=== PATIENT | female | born 1985 | race Caucasian/White ===

== ENCOUNTER → 2017-02-09 | Outpatient (CLI) | payer BC ==
[2017-02-09 11:34] LABS: Basophils % (A) 1 %; CH 32.1; Eosinophils % (A) 1 %; HCT 41.3 % (34.0-46.0); HGB 14.4 gm/dL (11.4-16.0); Luc # (Auto) 0.07; Luc % (Auto) 2; Lymphocytes # (A) 1.5 k/uL (1.0-4.8); Lymphocytes % (A) 32 %; MCH 31.4 pg (25.0-35.0); MCV 89.6 fL (80.0-100.0); Mean Platelet Volume 7.1; Monocytes # (A) 0.3 k/uL (0-1.0); Monocytes % (A) 6 %; Neutrophils # (A) 2.7 k/uL (1.3-7.7); Neutrophils % (A) 59 %; RDW 13.3 % (11.5-15.5); WBC 4.7 k/uL (3.8-10.6); WBC (Perox) 5.01
== END | disposition home or self-care (01) ==
LOC: LABPAT 10:51
PROVIDERS: ATTEND Obstetrics & Gynecology
DX: Z01.812 Encounter for preprocedural laboratory examination (principal)
CPT/HCPCS: 85025

== ENCOUNTER 2017-02-22 05:49 | Day surgery (SDC) | payer BC ==
[2017-02-18 13:17] VITALS: BMI 24.3
--- NOTE | 2017-02-19 12:15 | P.HPOB ---
History of Present Illness H&P Date: 02/19/17 Chief Complaint: High grade cervical dysplasia. This patient is a pleasant 31 yr female who presents for colposcopy with LEEP excision of endo/ecto cervix due to HGSIL. She has a history of mild dysplasia in the past and had cryo at that time. She had not had a pap in a while and it demonstrated HGSIL. Colpo on 02/02 showed ectocervical HGSIL (STAS II ). Endocervix was negative. Review of Systems Constitutional: Denies chills, Denies fever Ears, nose, mouth and throat: Denies headache, Denies sore throat Cardiovascular: Denies chest pain, Denies shortness of breath Respiratory: Denies cough Gastrointestinal: Denies abdominal pain, Denies diarrhea, Denies nausea, Denies vomiting Genitourinary: Reports as per HPI Past Medical History Past Medical History: Asthma, Osteoarthritis (OA) History of Any Multi-Drug Resistant Organisms: None Reported Past Surgical History: Section, Tubal Ligation Additional Past Surgical History / Comment(s): C SECTION X2 Past Anesthesia/Blood Transfusion Reactions: No Reported Reaction Past Psychological History: Anxiety, Bipolar, Depression Additional Psychological History / Comment(s): IN 2011 Smoking Status: Never smoker Past Alcohol Use History: Occasional Past Drug Use History: Marijuana Additional Drug Use History / Comment(s): MARIJUANA -HAS MEDICAL CARD USES RARELY - Past Family History Mother Family Medical History: No Reported History Medications and Allergies Home Medications Medication Instructions Recorded Confirmed Type Acyclovir [Zovirax] 800 mg PO DAILY PRN 06/20/14 02/18/17 History Albuterol Inhaler [Ventolin 2 puff INHALATION Q4HR PRN 06/20/14 02/18/17 History Inhaler] Budesonide/Formoterol Fumarate 2 puff INHALATION BID 02/18/17 02/18/17 History [Symbicort 160-4.5 Mcg Inhaler] Diclofenac Sodium [Voltaren] 75 mg PO HS 02/18/17 02/18/17 History Dicyclomine [Bentyl] 10 mg PO TID PRN 02/18/17 02/18/17 History HYDROcodone/APAP 10-325MG [[place] 1 tab PO BID 02/18/17 02/18/17 History 10-325] Methocarbamol [Robaxin] 750 mg PO TID PRN 02/18/17 02/18/17 History QUEtiapine [SEROquel] 50 mg PO HS 02/18/17 02/18/17 History clonazePAM [KlonoPIN] 1 mg PO DAILY PRN 02/18/17 02/18/17 History Allergies Allergy/AdvReac Type Severity Reaction Status Date / Time adhesive tape Allergy Rash/Hives Verified 02/18/17 12:44 latex Allergy Rash/Hives, Verified 02/18/17 12:44 BURNING SKIN Exam - OBG Physical Exam Abdomen: bowel sounds normal, no diffuse tenderness, no bruit present, no guarding noted, no hepatomegaly, no splenomegaly, no mass Vulva: both: normal Vagina: normal moisture, no discharge Cervix: no lesion, no discharge Uterus: normal size, normal contour Adnexa: both: normal Results Cervical biopsy on 02/02/2017 demonstrated STAS II (HGSIL) at 6 and 12 oclock. Assessment and Plan (1) High grade squamous intraepithelial cervical dysplasia Narrative/Plan: This is a pleasant 31 yr old female with STAS II (HGSIL) of the ectocervix who is presenting for colposcopy with LEEP excision of the ecto and endo cervix. I have discussed this surgery in detail with Janice and the risks: infection, bleeding, and possible positive margins. All of the patients questions were answered and a written consent obtained. Status: Acute
[~2017-02-22 05:49] MED LIST: DEXAMETHASONE SOD PHOSPHATE 10 MG/ML 1 ML VIAL IV ONE; LACTATED RINGERS 1,000 ML IV SCH; MIDAZOLAM 2 MG/2 ML VIAL IV PRN; ONDANSETRON 4 MG/2 ML VIAL IVP ONE; Pre Op ABX Message 1 EACH MISC MISCELLANE ONE; SCOPOLAMINE 1.5MG/72HR PATCH TRANSDERM ONE
[2017-02-22] MEDS ORDERED: PROPOFOL 10 MG/ML 20 ML VIAL IV ONE (06:52)
[2017-02-22] MEDS ORDERED: fentaNYL (PF) 50 MCG/ML 2 ML AMP ONE (06:52)
[2017-02-22] MEDS ORDERED: LIDOCAINE 1% INJ 10MG/ML (20 ML MDV) ONE (06:52)
[2017-02-22] MEDS ORDERED: MIDAZOLAM 2 MG/2 ML VIAL ONE (06:52)
[2017-02-22] MEDS ORDERED: FERRIC SUBSULFATE (MONSELS) JAR TOPICAL ONE ×2 (07:11)
[2017-02-22] MEDS ORDERED: IODINE/POTASS IOD (LUGOLS) BTL TOPICAL ONE (07:11)
--- NOTE | 2017-02-22 07:34 | P.OP ---
Date of Procedure: 02/22/17 Preoperative Diagnosis: High-grade cervical dysplasia Postoperative Diagnosis: Same Procedure(s) Performed: #1: Positive pain. #2: LEEP excision of the ectocervix and endocervix. Anesthesia: MAC Surgeon: Bill Perez Estimated Blood Loss (ml): 75 Urine output (ml): 50 Pathology: other (Ecto and endocervix) Condition: stable Disposition: PACU Indications for Procedure: Please see dictated H&P for intimate details of this patient's admission. Brief summary this is a pleasant 31-year-old female with known severe cervical dysplasia (STAS-2) who presents for LEEP excision of the ectocervix and endocervix. Patient understands this procedure and risks including risks of infection, bleeding, possible positive margins. All the patient's questions are answered and a written consent is obtained. Operative Findings: This patient had a large area of the ectocervix that was non-Lugol staining by colposcopy. Description of Procedure: This patient is taken to the operating room where she is laid in the supine position. She subsequent undergoes general mask anesthesia without incident. With adequate level of anesthesia she's placed in dorsal lithotomy position. She has a vaginal perineal prep and drape. Laser speculum was then placed in the vagina the bladder is drained for 50 mL of clear urine. A posterior spur performed in the area of the ectocervix that is abnormal is demarcated. Using large LEEP loop on a 60/70 cutting cautery setting one pass is made of the ectocervix and the entire transformation zone was removed. A second pass is made with the small LEEP loop and the endocervix is excised. There is brisk bleeding from the posterior lip of the cervix. This is cauterized. An for added hemostasis I placed 2 [id number] 0 Vicryl sutures. Excellent hemostasis is noted at this time. Cauterize the ectocervical and endocervical pads. Monsels solution is applied for added hemostasis. Prolonged observation and no further bleeding is noted procedure is ended. Patient is awakened from anesthesia and taken recovery room satisfactory condition. All counts are correct 3. There are no complications.
[2017-02-22 07:37] VITALS: TEMP 97.1
[2017-02-22 07:48] VITALS: RESP 16
[2017-02-22] MEDS: HYDROmorphone 1 MG/ML 1 ML SYRINGE IVP PRN ×2 (07:50→08:00)
[2017-02-22] MEDS ORDERED: LACTATED RINGERS 1,000 ML IV ONE (08:06)
[2017-02-22] MEDS ORDERED: HYDROcodone/APAP 5-325MG 1 EACH TAB PO STA (08:37)
[2017-02-22 09:09] VITALS: BP 108/67; PULSE 63
== END 2017-02-22 09:50 | disposition home or self-care (01) ==
LOC: OR 05:49
PROVIDERS: ATTEND Obstetrics & Gynecology
DX: D06.7 Carcinoma in situ of other parts of cervix (principal); J45.909 Unspecified asthma, uncomplicated; F41.9 Anxiety disorder, unspecified; F31.9 Bipolar disorder, unspecified; Z79.891 Long term (current) use of opiate analgesic; Z79.51 Long term (current) use of inhaled steroids; Z79.899 Other long term (current) drug therapy; Z91.040 Latex allergy status; Z91.048 Other nonmedicinal substance allergy status
CPT/HCPCS: 88307; 57460; J2250; J1100; J2405; J2001; J3010; J1170; J2704; 88305

== ENCOUNTER → 2018-11-04 | Outpatient (CLI) | payer BC ==
--- NOTE | 2018-11-08 08:33 | USB ---
History: Family history of breast cancer in maternal grandmother and breast cancer in maternal aunt. US Breast RT Right complete breast ultrasound includes all four quadrants, the retroareolar region and axilla. Finding demonstrates No cystic or solid lesion seen. ASSESSMENT: Incomplete: need additional imaging evaluation, BI-RAD 0 RECOMMENDATION: Follow-up diagnostic mammogram of the right breast.
--- NOTE | 2018-11-08 08:39 | MM ---
Reason for exam: clinical finding. Baseline mammogram. History: Family history of breast cancer in maternal grandmother and breast cancer in maternal aunt. Indicated problem(s): palpable abnormality in the right breast. Physical Findings: Nurse did not find any significant physical abnormalities on exam. MG 3D Diag Mammo W/Cad RT CC and MLO view(s) were taken of the right breast. No prior studies available for comparison. The breast tissue is extremely dense which could obscure a lesion on mammography. No discrete abnormality. These results were verbally communicated with the patient and result sheet given to the patient on 11/04/18. ASSESSMENT: Benign, BI-RAD 2 RECOMMENDATION: Clinical management. Routine screening mammogram of both breasts at age 34.
== END | disposition home or self-care (01) ==
LOC: RADUSWWP 09:28
PROVIDERS: ATTEND Obstetrics & Gynecology
DX: N64.4 Mastodynia (principal); N63.10 Unspecified lump in the right breast, unspecified quadrant
CPT/HCPCS: 77061; 77065

== ENCOUNTER 2018-12-04 19:34 | Emergency (ER) | payer BC ==
[2018-12-04 19:49] VITALS: BP 138/84; PULSE 96; RESP 18; TEMP 98.4
[2018-12-04] MEDS ORDERED: ACET/COD 300 MG/30 MG STARTER PACK 6 TAB BTL PO STA (20:13)
--- NOTE | 2018-12-04 20:42 | XR ---
right tibia and fibula. 4 views History pain. Trauma. Comparison none. FINDINGS: I see no fracture nor dislocation. Tibia and fibula appear intact. There are no pathologic calcificat ions. IMPRESSION: Normal right tibia and fibula exam.
--- NOTE | 2018-12-04 20:43 | XR ---
Right ankle 3 views. History pain. Comparison none. FINDINGS: There is no fracture nor dislocation. Joint spaces are normal. There are no pathologic calcifications . IMPRESSION: Normal right ankle.
--- NOTE | 2018-12-04 20:44 | XR ---
Right foot 3 views. History pain. Comparison none. FINDINGS: Metatarsals are intact. I see no fracture nor dislocation. Joint spaces are normal. Impression Negative right foot exam.
--- NOTE | 2018-12-04 20:45 | ED ---
Lower Extremity Injury HPI - General Chief Complaint: Extremity Injury, Lower Stated Complaint: rt ankle injury Time Seen by Provider: 12/04/18 19:52 Source: patient, RN notes reviewed, old records reviewed Mode of arrival: wheelchair Limitations: no limitations - History of Present Illness Initial Comments: 33-year-old female presents returns here with right ankle pain and injury. She reports that she was on a climbing wall at a local gymnasium. Patient reports that she fell and twisted her right ankle at the time. She reports symptoms happened at 2:00. She went home ice it. She states the pain seemed to be progressively worse over the past few hours. She went to the grocery store and got splints to put on at home. Patient states that the pain was unbearable and she was unable to bear weight. Patient denies any other complaints. - Related Data Home Medications Medication Instructions Recorded Confirmed Acyclovir [Zovirax] 800 mg PO DAILY PRN 06/20/14 02/22/17 Albuterol Inhaler [Ventolin 2 puff INHALATION Q4HR PRN 06/20/14 02/22/17 Inhaler] Budesonide/Formoterol Fumarate 2 puff INHALATION BID 02/18/17 02/22/17 [Symbicort 160-4.5 Mcg Inhaler] Diclofenac Sodium [Voltaren] 75 mg PO HS 02/18/17 02/22/17 Dicyclomine [Bentyl] 10 mg PO TID PRN 02/18/17 02/22/17 HYDROcodone/APAP 10-325MG [[place] 1 tab PO BID 02/18/17 02/22/17 10-325] Methocarbamol [Robaxin] 750 mg PO TID PRN 02/18/17 02/22/17 QUEtiapine [SEROquel] 50 mg PO HS 02/18/17 02/22/17 clonazePAM [KlonoPIN] 1 mg PO DAILY PRN 02/18/17 02/22/17 Previous Rx's Medication Instructions Recorded Acetaminophen-Codeine 300-30mg 1 - 2 tab PO Q4H PRN #30 tablet 02/22/17 [Tylenol #3] Ibuprofen [Motrin] 600 mg PO Q6HR PRN #40 tab 02/22/17 Ibuprofen [Motrin] 400 mg PO Q4H #20 tab 12/04/18 Allergies Allergy/AdvReac Type Severity Reaction Status Date / Time adhesive tape Allergy Rash/Hives Verified 12/04/18 19:49 latex Allergy Rash/Hives, Verified 12/04/18 19:49 BURNING SKIN Review of Systems ROS Statement: Those systems with pertinent positive or pertinent negative responses have been documented in the HPI. ROS Other: All systems not noted in ROS Statement are negative. Past Medical History Past Medical History: Asthma History of Any Multi-Drug Resistant Organisms: None Reported Past Surgical History: Section Past Anesthesia/Blood Transfusion Reactions: No Reported Reaction Past Psychological History: Anxiety, Bipolar, Depression Past Alcohol Use History: None Reported, Abuse Past Drug Use History: None Reported General Exam - General Exam Comments Initial Comments: Well-appearing 33-year-old female. No distress. Limitations: no limitations General appearance: alert, in no apparent distress Head exam: Present: atraumatic, normocephalic, normal inspection Eye exam: Present: normal appearance, PERRL, EOMI. Absent: scleral icterus, conjunctival injection, periorbital swelling ENT exam: Present: normal exam, mucous membranes moist Neck exam: Present: normal inspection. Absent: tenderness, meningismus, lymphadenopathy Respiratory exam: Present: normal lung sounds bilaterally. Absent: respiratory distress, wheezes, rales, rhonchi, stridor Cardiovascular Exam: Present: regular rate, normal rhythm, normal heart sounds. Absent: systolic murmur, diastolic murmur, rubs, gallop, clicks GI/Abdominal exam: Present: soft, normal bowel sounds. Absent: distended, tenderness, guarding, rebound, rigid Extremities exam: Present: normal inspection, full ROM, normal capillary refill. Absent: tenderness, pedal edema, joint swelling, calf tenderness Right Lower Leg exam: Present: normal inspection, full ROM Ankle exam: Present: full ROM, tenderness, swelling (over bilateral malleolus). Absent: normal inspection Foot/Toe exam: Present: normal inspection, full ROM Neurovascular tendon exam: Present: no vascular compromise Gait: observed and normal Back exam: Present: normal inspection Neurological exam: Present: alert, oriented X3, CN II-XII intact Psychiatric exam: Present: normal affect, normal mood Skin exam: Present: warm, dry, intact, normal color. Absent: rash Course Vital Signs 12/04/18 19:45 Temperature 98.4 F Pulse Rate 96 Respiratory 18 Rate Blood Pressure 138/84 O2 Sat by Pulse 100 Oximetry Procedures - Orthopedic Splinting/Casting Injury #1 Side: right Upper Extremity Immobilizer: Zac wrap Lower Extremity Injury Location: ankle Medical Decision Making - Medical Decision Making Patient is a 33-year-old female presents to return today with right ankle and foot pain after twisting while at a gymnasium. Patient has some tenderness and swelling over the medial lower lateral malleolus. She has normal pulses normal sensation distally. X-ray of the tib-fib ankle and foot are negative for any acute process. Patient is placed in Zac wrap and ankle stirrup splint. Discussed following up with orthopedic if symptoms persist. Prescription for crutches. - Radiology Data Radiology results: report reviewed Normal right tibia and fibula exam. Negative right foot exam. Normal right ankle. Disposition Clinical Impression: Right ankle sprain Disposition: HOME SELF-CARE Condition: Good Instructions (If sedation given, give patient instructions): Ankle Sprain (ED) Additional Instructions: Rest rest, ice, and elevate the foot and ankle. Ambulate with crutches. Follow -up with orthopedic symptoms persist. Return to emergency department if any alarming signs or symptoms occur. Prescriptions: Ibuprofen [Motrin] 400 mg PO Q4H #20 tab Is patient prescribed a controlled substance at d/c from ED?: No Referrals: Yosvany De La Cruz MD [Primary Care Provider] - 1-2 days Nikolay Molina DO [Doctor of Osteopathic Medicine] - 1-2 days Time of Disposition: 20:56
== END 2018-12-04 21:11 | disposition home or self-care (01) ==
LOC: EC 19:34
DX: S93.401A Sprain of unspecified ligament of right ankle, initial encounter (principal); J45.909 Unspecified asthma, uncomplicated; F31.9 Bipolar disorder, unspecified; Z79.51 Long term (current) use of inhaled steroids; Z79.1 Long term (current) use of non-steroidal anti-inflammatories (NSAID); Z79.891 Long term (current) use of opiate analgesic; Z79.899 Other long term (current) drug therapy; Z91.048 Other nonmedicinal substance allergy status; Z91.040 Latex allergy status; W19.XXXA Unspecified fall, initial encounter; X50.1XXA Overexertion from prolonged static or awkward postures, initial encounter; Y93.31 Activity, mountain climbing, rock climbing and wall climbing; Y92.39 Other specified sports and athletic area as the place of occurrence of the external cause
CPT/HCPCS: 29515; 99284

== ENCOUNTER 2020-01-11 12:29 | Emergency (ER) | payer BC ==
[2020-01-11] MEDS ORDERED: KETOROLAC 30 MG/ML 1 ML VIAL IVP STA (12:52)
[2020-01-11] MEDS ORDERED: PANTOPRAZOLE 40 MG/10 ML VIAL IVP STA (12:52)
[2020-01-11] MEDS ORDERED: SODIUM CHLORIDE 0.9% 1,000 ML IV STA (12:52)
--- NOTE | 2020-01-11 12:56 | ED ---
Abdominal Pain HPI - General Chief Complaint: Abdominal Pain Stated Complaint: abd pain Time Seen by Provider: 01/11/20 12:33 Source: patient Mode of arrival: ambulatory Limitations: no limitations - History of Present Illness Initial Comments: Patient is a 34-year-old female presenting to emergency Department with complaints of abdominal pain 2 days. Patient states she went to her PCPs office today and they sent her to the ER for a possible computed tomography scan. Patient states she does have history of IBS and initially thought her pains were gas related or constipation. Patient states she did have a bowel movement yesterday which was very hard, small amount. Patient states her pain has been steadily increasing over the past 2-3 days. She states now it hurts to take in a deep breath or stand up straight. She does admit to history of 2 C- sections and tubal ligation. No other abdominal surgeries. She does admit to nausea, no vomiting, no diarrhea. She denies being secondary to tubal ligation. She denies fever, chills, chest pain, shortness of breath. She has no other complaints at this time. Upon arrival to ER, patient slightly tachycardia at 104, rest of vitals are normal. - Related Data Home Medications Medication Instructions Recorded Confirmed Acyclovir [Zovirax] 800 mg PO DAILY PRN 06/20/14 02/22/17 Albuterol Inhaler [Ventolin 2 puff INHALATION Q4HR PRN 06/20/14 02/22/17 Inhaler] Budesonide/Formoterol Fumarate 2 puff INHALATION BID 02/18/17 02/22/17 [Symbicort 160-4.5 Mcg Inhaler] Diclofenac Sodium [Voltaren] 75 mg PO HS 02/18/17 02/22/17 Dicyclomine [Bentyl] 10 mg PO TID PRN 02/18/17 02/22/17 HYDROcodone/APAP 10-325MG [[place] 1 tab PO BID 02/18/17 02/22/17 10-325] Methocarbamol [Robaxin] 750 mg PO TID PRN 02/18/17 02/22/17 QUEtiapine [SEROquel] 50 mg PO HS 02/18/17 02/22/17 clonazePAM [KlonoPIN] 1 mg PO DAILY PRN 02/18/17 02/22/17 Previous Rx's Medication Instructions Recorded Acetaminophen-Codeine 300-30mg 1 - 2 tab PO Q4H PRN #30 tablet 02/22/17 [Tylenol #3] Ibuprofen [Motrin] 600 mg PO Q6HR PRN #40 tab 02/22/17 Ibuprofen [Motrin] 400 mg PO Q4H #20 tab 12/04/18 Ketorolac [Toradol] 10 mg PO Q8HR #10 tab 01/11/20 Allergies Allergy/AdvReac Type Severity Reaction Status Date / Time adhesive tape Allergy Rash/Hives Verified 01/11/20 12:38 ciprofloxacin [From Cipro] Allergy Rapid Verified 01/11/20 12:38 Heart Rate latex Allergy Rash/Hives, Verified 01/11/20 12:38 BURNING SKIN Review of Systems ROS Statement: Those systems with pertinent positive or pertinent negative responses have been documented in the HPI. ROS Other: All systems not noted in ROS Statement are negative. Past Medical History Past Medical History: Asthma History of Any Multi-Drug Resistant Organisms: None Reported Past Surgical History: Section, Tubal Ligation Additional Past Surgical History / Comment(s): LEEP Past Anesthesia/Blood Transfusion Reactions: No Reported Reaction Past Psychological History: Anxiety, Bipolar, Panic Disorder Smoking Status: Never smoker Past Alcohol Use History: Occasional Past Drug Use History: None Reported General Exam - General Exam Comments Initial Comments: GENERAL: Well-appearing, well-nourished and in no acute distress. HEAD: Atraumatic, normocephalic. EYES: Pupils equal round and reactive to light, extraocular movements intact, sclera anicteric, conjunctiva are normal. ENT: TMs normal, nares patent, oropharynx clear without exudates. Moist mucous membranes. NECK: Normal range of motion, supple without lymphadenopathy or JVD. LUNGS: Breath sounds clear to auscultation bilaterally and equal. No wheezes rales or rhonchi. HEART: Regular rate and rhythm without murmurs, rubs or gallops. ABDOMEN: Generalized abdominal tenderness to palpation, increased umbilical, right lower quadrant, epigastric regions. Soft, normoactive bowel sounds. No rebound. No masses appreciated. : Deferred EXTREMITIES: Normal range of motion, no pitting or edema. No clubbing or cyanosis. NEUROLOGICAL: Normal speech, normal gait. PSYCH: Normal mood, normal affect. SKIN: Warm, Dry, normal turgor, no rashes or lesions noted. Limitations: no limitations Course Vital Signs 01/11/20 01/11/20 01/11/20 12:33 14:17 14:58 Temperature 97.6 F Pulse Rate 104 H 90 Respiratory 16 18 16 Rate Blood Pressure 133/97 130/73 O2 Sat by Pulse 99 100 Oximetry 01/11/20 16:45 Temperature 98.1 F Pulse Rate 78 Respiratory 16 Rate Blood Pressure 133/70 O2 Sat by Pulse 98 Oximetry Medical Decision Making - Medical Decision Making Patient is a 34-year-old female with history of IBS presenting with abdominal pain 2 days. Patient was slightly tach and arrival rest of vitals are normal. Exam reveals generalized abdominal tenderness, increased more in the right side. Lab work shows no acute findings, lactic acid is normal. Urine shows no signs of infection. HCG is not detected. CT of the abdomen was obtained and shows an overall nonspecific bowel gas pattern. Possible early or mild partial small bowel obstruction. Patient has been able to pass gas. There is no signs of efraín endicitis or cholecystitis. I discussed these findings with the patient. I did recommend admission to the patient however patient declined and is very adamant about not staying in the hospital. She wants to try to treat this at home. We did discuss a strict diet precautions for 24-48 hours. Patient will also try MiraLAX as well as an at-home enema. Strict return parameters were discussed with the patient and she verbalized understanding. Case discussed with Dr. Sharp who is in agreement with this plan of care. - Lab Data Result diagrams: 01/11/20 13:15 01/11/20 13:15 Lab Results 01/11/20 01/11/20 01/11/20 Range/Units 13:15 13:15 13:15 WBC 5.9 (3.8-10.6) k/uL RBC 4.68 (3.80-5.40) m/uL Hgb 14.8 (11.4-16.0) gm/dL Hct 41.8 (34.0-46.0) % MCV 89.4 (80.0-100.0) fL MCH 31.6 (25.0-35.0) pg MCHC 35.4 (31.0-37.0) g/dL RDW 12.7 (11.5-15.5) % Plt Count 168 (150-450) k/uL Neutrophils % 83 % Lymphocytes % 9 % Monocytes % 5 % Eosinophils % 1 % Basophils % 0 % Neutrophils # 4.9 (1.3-7.7) k/uL Lymphocytes # 0.6 L (1.0-4.8) k/uL Monocytes # 0.3 (0-1.0) k/uL Eosinophils # 0.1 (0-0.7) k/uL Basophils # 0.0 (0-0.2) k/uL Sodium (137-145) mmol/L Potassium (3.5-5.1) mmol/L Chloride (98-107) mmol/L Carbon Dioxide (22-30) mmol/L Anion Gap mmol/L BUN (7-17) mg/dL Creatinine (0.52-1.04) mg/dL Est GFR (CKD-EPI)AfAm (>60 ml/min/1.73 sqM) Est GFR (CKD-EPI)NonAf (>60 ml/min/1.73 sqM) Glucose (74-99) mg/dL Plasma Lactic Acid Yonny (0.7-2.0) mmol/L Calcium (8.4-10.2) mg/dL Total Bilirubin (0.2-1.3) mg/dL AST (14-36) U/L ALT (4-34) U/L Alkaline Phosphatase (38-126) U/L Total Protein (6.3-8.2) g/dL Albumin (3.5-5.0) g/dL Amylase (30-110) U/L Lipase (23-300) U/L Urine Color Light Yellow Urine Appearance Cloudy H (Clear) Urine pH 5.0 (5.0-8.0) Ur Specific [place] 1.009 (1.001-1.035) Urine Protein Negative (Negative) Urine Glucose (UA) Negative (Negative) Urine Ketones Negative (Negative) Urine Blood Negative (Negative) Urine Nitrite Negative (Negative) Urine Bilirubin Negative (Negative) Urine Urobilinogen <2.0 (<2.0) mg/dL Ur Leukocyte Esterase Large H (Negative) Urine RBC 3 (0-5) /hpf Urine WBC 6 H (0-5) /hpf Ur Squamous Epith Cells 6 H (0-4) /hpf Urine Bacteria Rare H (None) /hpf Urine HCG, Qual Not Detected (Not Detectd) 01/11/20 01/11/20 Range/Units 13:15 13:15 WBC (3.8-10.6) k/uL RBC (3.80-5.40) m/uL Hgb (11.4-16.0) gm/dL Hct (34.0-46.0) % MCV (80.0-100.0) fL MCH (25.0-35.0) pg MCHC (31.0-37.0) g/dL RDW (11.5-15.5) % Plt Count (150-450) k/uL Neutrophils % % Lymphocytes % % Monocytes % % Eosinophils % % Basophils % % Neutrophils # (1.3-7.7) k/uL Lymphocytes # (1.0-4.8) k/uL Monocytes # (0-1.0) k/uL Eosinophils # (0-0.7) k/uL Basophils # (0-0.2) k/uL Sodium 135 L (137-145) mmol/L Potassium 4.1 (3.5-5.1) mmol/L Chloride 107 (98-107) mmol/L Carbon Dioxide 19 L (22-30) mmol/L Anion Gap 9 mmol/L BUN 10 (7-17) mg/dL Creatinine 0.61 (0.52-1.04) mg/dL Est GFR (CKD-EPI)AfAm >90 (>60 ml/min/1.73 sqM) Est GFR (CKD-EPI)NonAf >90 (>60 ml/min/1.73 sqM) Glucose 95 (74-99) mg/dL Plasma Lactic Acid Yonny 0.8 (0.7-2.0) mmol/L Calcium 9.2 (8.4-10.2) mg/dL Total Bilirubin 0.5 (0.2-1.3) mg/dL AST 17 (14-36) U/L ALT 14 (4-34) U/L Alkaline Phosphatase 43 (38-126) U/L Total Protein 7.3 (6.3-8.2) g/dL Albumin 4.3 (3.5-5.0) g/dL Amylase 49 (30-110) U/L Lipase 56 (23-300) U/L Urine Color Urine Appearance (Clear) Urine pH (5.0-8.0) Ur Specific [place] (1.001-1.035) Urine Protein (Negative) Urine Glucose (UA) (Negative) Urine Ketones (Negative) Urine Blood (Negative) Urine Nitrite (Negative) Urine Bilirubin (Negative) Urine Urobilinogen (<2.0) mg/dL Ur Leukocyte Esterase (Negative) Urine RBC (0-5) /hpf Urine WBC (0-5) /hpf Ur Squamous Epith Cells (0-4) /hpf Urine Bacteria (None) /hpf Urine HCG, Qual (Not Detectd) Disposition Clinical Impression: Abdominal pain, Partial small bowel obstruction Disposition: HOME SELF-CARE Condition: Stable Instructions (If sedation given, give patient instructions): Abdominal Pain (ED) Additional Instructions: Please return to the Emergency Department if symptoms worsen or any other concerns, such as increasing abdominal pain, abdominal distention. Continue trial of laxatives, MiraLAX for constipation. May try an enema at home. Continue to increase fluid intake. Liquid diet for 24-48 hours. Prescriptions: Ketorolac [Toradol] 10 mg PO Q8HR #10 tab Is patient prescribed a controlled substance at d/c from ED?: No Referrals: Chito Becker DO [Primary Care Provider] - 1-2 days
[2020-01-11 13:36] LABS: Appearance,Urine Cloudy (Clear); Bacteria,Urine Rare /hpf; Bilirubin,Urine Negative (Negative); Blood,Urine Negative (Negative); Color,Urine Light Yellow; Glucose,Urine (UA) Negative (Negative); Ketones,Urine Negative (Negative); Leukocyte Esterase,Urine Large (Negative); Nitrite,Urine Negative (Negative); Protein,Urine Negative (Negative); RBC,Urine 3 /hpf (0-5); Specific Gravity,Urine 1.009 (1.001-1.035); Squamous Epithelial Cell,Urine 6 /hpf (0-4); Urobilinogen,Urine <2.0 mg/dL (<2.0); WBC,Urine 6 /hpf (0-5)
[2020-01-11 13:37] LABS: ALT 14 U/L (4-34); AST 17 U/L (14-36); African American GFR (CKD) >90 (>60 ml/min/1.73 sqM); Albumin 4.3 g/dL (3.5-5.0); Alkaline Phosphatase 43 U/L (38-126); Amylase 49 U/L (30-110); Anion Gap 9 mmol/L; Basophils % (A) 0 %; Blood Urea Nitrogen 10 mg/dL (7-17); Calcium 9.2 mg/dL (8.4-10.2); Carbon Dioxide 19 mmol/L (22-30); Chloride 107 mmol/L (98-107); Eosinophils # (A) 0.1 k/uL (0-0.7); Eosinophils % (A) 1 %; Glucose 95 mg/dL (74-99); HCT 41.8 % (34.0-46.0); HGB 14.8 gm/dL (11.4-16.0); Lymphocytes # (A) 0.6 k/uL (1.0-4.8); Lymphocytes % (A) 9 %; MCH 31.6 pg (25.0-35.0); MCHC 35.4 g/dL (31.0-37.0); MCV 89.4 fL (80.0-100.0); Mean Platelet Volume 7.9; Monocytes # (A) 0.3 k/uL (0-1.0); Monocytes % (A) 5 %; Neutrophils # (A) 4.9 k/uL (1.3-7.7); Neutrophils % (A) 83 %; Non-African American GFR(CKD) >90 (>60 ml/min/1.73 sqM); Platelet Count 168 k/uL (150-450); Potassium 4.1 mmol/L (3.5-5.1); RBC 4.68 m/uL (3.80-5.40); RDW 12.7 % (11.5-15.5); Sodium 135 mmol/L (137-145); Total Bilirubin 0.5 mg/dL (0.2-1.3); Total Protein 7.3 g/dL (6.3-8.2); WBC 5.9 k/uL (3.8-10.6)
[2020-01-11 14:59] VITALS: RESP 16
--- NOTE | 2020-01-11 15:21 | CT ---
EXAMINATION TYPE: CT abdomen pelvis w con DATE OF EXAM: 01/11/2020 HISTORY: Epigastric and right upper quadrant abdominal pain. CT DLP: 498mGycm Automated Exposure Control for Dose Reduction was Utilized. CONTRAST: CT scan of the abdomen and pelvis is performed with IV Contrast, patient injected with 100 mL of Isov ue 300. COMPARISON: None. FINDINGS: LUNG BASES: No significant abnormality is appreciated. LIVER/GB: No significant abnormality is appreciated. PANCREAS: No significant abnormality is seen. SPLEEN: No significant abnormality is seen. ADRENALS: No significant abnormality is seen. KIDNEYS: No significant abnormality is seen. BOWEL: Suboptimal evaluation of bowel without enteric contrast. Stomach not greatly distended. There are few scattered air-fluid levels throughout multiple small bowel loops. There is fluid in the right colon. Finding could reflect product of colitis and/or diarrhea. Correlate clinically. Some small matteo wel feces sign is seen involving anterior bowel loops. Some bowel loops are more prominent than other s without greater than 3 cm aneurysmal change. UTERUS/ADNEXA: Heterogeneous prominent lobulated uterus likely reflecting large subserosal fibroid po steriorly measuring approximately 6 x 5 cm axial image 59 corresponding to sagittal image 64. This ca n be confirmed with pelvic ultrasound if desired. There is small to moderate amount of free fluid in pelvic cul-de-sac axial image 62. Rim-enhancing ovoid lesion right pelvis that measures 61 could refl ect corpus luteal cyst from recent ovulation. LYMPH NODES: No greater than 1cm abdominal or pelvic lymph nodes are appreciated. OSSEOUS STRUCTURES: No significant abnormality is seen. OTHER: No significant additional abnormality is seen. IMPRESSION: 1. Overall nonspecific bowel gas pattern. Possible mild proximal colitis versus diarrhea. Correlate c linically. Possible early or mild partial small bowel obstructive changes with some more prominent sm all bowel loops that are fluid or fecal filled with air-fluid levels. Possible enteritis. Strict clin ical correlation advised. 2. No CT evidence for acute cholecystitis. 3. Probable uterine fibroid. Nonspecific small to moderate amount of pelvic ascites.
[2020-01-11 16:49] VITALS: BP 133/70; PULSE 78; TEMP 98.1
== END 2020-01-11 16:45 | disposition home or self-care (01) ==
LOC: EC 12:29
DX: K56.600 Partial intestinal obstruction, unspecified as to cause (principal); J45.909 Unspecified asthma, uncomplicated; F41.0 Panic disorder [episodic paroxysmal anxiety]; F31.9 Bipolar disorder, unspecified; Z79.51 Long term (current) use of inhaled steroids; Z79.899 Other long term (current) drug therapy; Z91.048 Other nonmedicinal substance allergy status; Z91.040 Latex allergy status; Z88.1 Allergy status to other antibiotic agents
CPT/HCPCS: 36415; 80053; 82150; 83605; 83690; 85025; 81001; 81025; 74177; 99284; 96374; 96375; 96361; J1885; C9113; Q9967

== ENCOUNTER → 2020-06-03 | Outpatient (CLI) | payer BC ==
[2020-06-03 12:15] LABS: Basophils % (A) 1 %; Eosinophils # (A) 0.2 k/uL (0-0.7); Eosinophils % (A) 4 %; HCT 43.1 % (34.0-46.0); HGB 14.4 gm/dL (11.4-16.0); Lymphocytes # (A) 1.1 k/uL (1.0-4.8); Lymphocytes % (A) 20 %; MCH 32.1 pg (25.0-35.0); MCHC 33.4 g/dL (31.0-37.0); Mean Platelet Volume 9.6; Monocytes # (A) 0.3 k/uL (0-1.0); Monocytes % (A) 5 %; Neutrophils % (A) 69 %; Platelet Count 173 k/uL (150-450); RBC 4.49 m/uL (3.80-5.40); RDW 12.8 % (11.5-15.5); WBC 5.8 k/uL (3.8-10.6)
[2020-06-03 12:25] LABS: African American GFR (CKD) >90 (>60 ml/min/1.73 sqM); Anion Gap 4 mmol/L; Blood Urea Nitrogen 12 mg/dL (7-17); Calcium 9.2 mg/dL (8.4-10.2); Carbon Dioxide 27 mmol/L (22-30); Chloride 106 mmol/L (98-107); Glucose 84 mg/dL (74-99); Non-African American GFR(CKD) >90 (>60 ml/min/1.73 sqM); Sodium 137 mmol/L (137-145)
== END | disposition home or self-care (01) ==
LOC: LABPAT 11:21
PROVIDERS: ATTEND Obstetrics & Gynecology
DX: Z01.818 Encounter for other preprocedural examination (principal)
CPT/HCPCS: 36415; 80048; 85025

== ENCOUNTER 2020-06-10 05:55 | Inpatient (IN) | payer BC ==
[2020-06-03 16:46] VITALS: BMI 28.3
--- NOTE | 2020-06-09 12:59 | P.HPOB ---
History of Present Illness H&P Date: 06/09/20 Chief Complaint: Menorrhagia, dysmenorrhea, uterine fibroids. This patient is a pleasant 34 yr female who has longstanding menorrhagia, uterine fibroids, and dysmenorrhea who presents for definitive surgical treatment. Ultrasound shows a 5.4cm submucosal fibroid. She and I discussed other options for treatment including hormonal therapy, etc and she has chosen a hysterectomy and fallopian tube removal. Review of Systems Genitourinary: Reports as per HPI, Reports dysmenorrhea Menstruation: Reports as per HPI, Reports period heavy Past Medical History Past Medical History: Asthma, Osteoarthritis (OA) History of Any Multi-Drug Resistant Organisms: None Reported Past Surgical History: Section, Tubal Ligation Additional Past Surgical History / Comment(s): LEEP Past Anesthesia/Blood Transfusion Reactions: No Reported Reaction Past Psychological History: Bipolar, Depression Smoking Status: Former smoker Past Alcohol Use History: None Reported Past Drug Use History: None Reported - Past Family History Mother Family Medical History: No Reported History Medications and Allergies Home Medications Medication Instructions Recorded Confirmed Type Acyclovir [Zovirax] 800 mg PO DAILY PRN 06/20/14 06/03/20 History Albuterol Inhaler (Mhu) [Ventolin 2 puff INHALATION Q4HR PRN 06/20/14 06/03/20 History Inhaler] QUEtiapine [SEROquel] 50 mg PO HS 02/18/17 06/03/20 History Naproxen Sodium [Aleve] 440 mg PO DAILY PRN 06/03/20 06/03/20 History clonazePAM [KlonoPIN] 1 mg PO BID PRN 06/03/20 06/03/20 History Famotidine 20 mg PO BID PRN 06/04/20 06/04/20 History Allergies Allergy/AdvReac Type Severity Reaction Status Date / Time acetaminophen Allergy Itching Verified 06/03/20 16:23 [From Tylenol-Codeine] adhesive tape Allergy Rash/Hives Verified 06/03/20 16:16 ciprofloxacin [From Cipro] Allergy Rapid Verified 06/03/20 16:16 Heart Rate codeine Allergy Itching Verified 06/03/20 16:23 [From Tylenol-Codeine] latex Allergy Rash/Hives, Verified 06/03/20 16:16 BURNING SKIN Exam - OBG Physical Exam Abdomen: bowel sounds normal, no diffuse tenderness, no bruit present, no guarding noted, no hepatomegaly, no splenomegaly, no mass Vulva: both: normal Vagina: normal moisture, no discharge Cervix: no lesion, no discharge Uterus: enlarged Results Ultrasound on 04/02 showed multiple fibroids, largest 5.4cm submucosal Assessment and Plan Assessment: This is a pleasant 34 yr female with known uterine fibroids, dysmenorrhea, and menorrhagia who present for total abdominal hysterectomy and bilateral salpingectomy. Plan ovarian conservation unless abnormal. I have discussed this surgery in detail with Janice and she understands the risks: infection, bleeding, possible injury to bowel/bladder/ureters/vessels and/or other organs. She understands she is at increased risk due to 2 previous sections. She understands risk of prolonged catheterization and / or need for further surgery. We discussed risks of DVT and PE. All of her questions have been answered and a written consent obtained. (1) Uterine fibroid Status: Acute Code(s): D25.9 - LEIOMYOMA OF UTERUS, UNSPECIFIED SNOMED Code(s): 08771640 (2) Menorrhagia Status: Acute Code(s): N92.0 - EXCESSIVE AND FREQUENT MENSTRUATION WITH REGULAR CYCLE SNOMED Code(s): 492767374 (3) Dysmenorrhea Status: Acute Code(s): N94.6 - DYSMENORRHEA, UNSPECIFIED SNOMED Code(s): 035530235
[2020-06-10] MEDS ORDERED: LACTATED RINGERS 1,000 ML IV SCH (06:02)
[2020-06-10] MEDS ORDERED: ONDANSETRON 4 MG/2 ML VIAL IVP ONE (06:02)
[2020-06-10] MEDS ORDERED: LIDOCAINE 1% (10MG/ML) FOR IV START INTRADERMA PRN (06:02)
[2020-06-10] MEDS ORDERED: DEXAMETHASONE SOD PHOSPHATE 10 MG/ML 1 ML VIAL IV ONE (06:02)
[2020-06-10] MEDS ORDERED: SCOPOLAMINE 1.5MG/72HR PATCH TRANSDERM ONE (06:02)
[2020-06-10] MEDS ORDERED: HYDROmorphone 0.5 MG/0.5 ML SYRINGE IVP PRN (06:02)
[2020-06-10] MEDS ORDERED: MIDAZOLAM 2 MG/2 ML VIAL IVP ONE ×2 (07:06→15:09)
[2020-06-10] MEDS ORDERED: fentaNYL (PF) 50 MCG/ML 2 ML AMP IVP ONE ×3 (07:06→15:09)
[2020-06-10] MEDS ORDERED: LIDOCAINE 1% INJ 10MG/ML (20 ML MDV) ONE (07:24)
[2020-06-10] MEDS ORDERED: GLYCOPYRROLATE 0.2 MG/ML 2 ML VIAL ONE (07:24)
[2020-06-10] MEDS ORDERED: fentaNYL (PF) 50 MCG/ML 2 ML AMP ONE (07:24)
[2020-06-10] MEDS ORDERED: KETOROLAC 30 MG/ML 1 ML VIAL ONE (07:24)
[2020-06-10] MEDS ORDERED: MORPHINE SULFATE (PF) 0.3 MG/0.3 ML SYR ONE (07:24)
[2020-06-10] MEDS ORDERED: SUCCINYLCHOLINE CHLORIDE VIAL 200 MG/10 ML VIAL IV ONE (07:24)
[2020-06-10] MEDS ORDERED: PROPOFOL 10 MG/ML 20 ML VIAL IV ONE (07:24)
[2020-06-10] MEDS ORDERED: diphenhydrAMINE 50 MG/ML 1 ML VIAL ONE (07:24)
[2020-06-10] MEDS ORDERED: MIDAZOLAM 2 MG/2 ML VIAL ONE (07:24)
[2020-06-10] MEDS ORDERED: HYDROmorphone (PF) 1 MG/ML ONE (07:24)
[2020-06-10] MEDS ORDERED: ROCURONIUM 10 MG/ML (5 ML VIAL) IV ONE (07:24)
[2020-06-10] MEDS ORDERED: NEOSTIGMINE 1 MG/ML 10 ML VIAL ONE (07:24)
[2020-06-10] MEDS ORDERED: LACTATED RINGERS 1,000 ML IV ONE ×4 (07:56→09:52)
--- NOTE | 2020-06-10 08:47 | P.OP ---
Date of Procedure: 06/10/20 Preoperative Diagnosis: #1: Dysmenorrhea. #2: Menorrhagia. #3: Uterine fibroids Postoperative Diagnosis: Same Procedure(s) Performed: Total abdominal hysterectomy and bilateral salpingectomy Anesthesia: MARIBEL Surgeon: Bill Perez Hunter Guide #1: Kaiden Delong Estimated Blood Loss (ml): 100 Pathology: other (Uterus and bilateral fallopian tubes) Condition: stable Disposition: PACU Indications for Procedure: Please see dictated H&P for intimate details of this patient's admission. Brief summary this is a pleasant 34-year-old 3 para 2 female with long- standing dysmenorrhea and menorrhagia. Ultrasound shown a 5-6 cm submucosal fibroid. Patient I discussed management options and she wished to proceed with definitive surgical therapy. Patient presented for abdominal hysterectomy and bilateral fallopian tube removal. She and I did discuss in detail the surgery and risks and risks of infection, bleeding, possible injury bowel, bladder, vessels, and/or other organs. Operative Findings: With a 5-6 cm central fibroid. She also had a smaller fibroid on the left side. Ovaries appeared normal. Tubes appeared normal with the exception of previous tubal ligation Description of Procedure: This patient is taken to the operating room where she is laid in the supine position. She subsequently underwent general endotracheal anesthesia without incident. With an adequate level of anesthesia she has abdominal prep and drape. She has a Reyes catheter vaginal prep and drape. Scalpels and taken the previous Pfannenstiel incision is incised. A second scalpel is taken down the fascia and the fascia scored with a knife. Fascial incision extended bilaterally. Rectus muscles were then and the peritoneum identified and entered sharply. Peritoneal incision extended superior and inferior without difficulty. Inspection of the pelvis this time showed a mobile uterus approximately 10-12 weeks' size. Ovaries appeared normal. Fallopian tubes appeared normal with the exception of previous tubal ligation. Upper abdomen grossly appeared normal. This done the Mountain retractor is then placed. Bladder blade is placed gently. The bowels packed up out of the pelvis with a 3 yard wet laparotomy sponge. I then placed 2 curved Joan's across the cornea of the uterus. Using Heaneys I clamped and transected suture ligate both fallopian tube segments bilaterally. Good hemostasis is noted. 2 Heaneys and cut placed across the ampulla pelvic ligaments. These are transected and suture with 0 Vicryl suture. The bladder peritoneum was then taken down sharply. Parrish clamps were then used to transect and suture ligate the uterine ovarian ligaments. I continued to clamp down to the base of the cervix. The uterus with attached cervix are then removed. Vaginal cuff was then grasped to progress. Using 0 Vicryl running locked fashion the cuff was closed and excellent hemostasis is noted. This time copious irrigation is done again good hemostasis is noted. Packs and sponges are all removed. The Mountain retractor is removed. The rectus muscles then closed in 0 Vicryl interrupted fashion. Fascia is then closed using 0 PDS. Fascial incision is intact and hemostatic. The subcutaneous tissues and closed using a 3-0 Vicryl. Katie then used to close the skin incision. Sterile dressing is applied. Catheter is draining clear yellow urine. There are no complications. Patient is awakened from anesthesia and taken to the recovery room in satisfactory condition.
[2020-06-10] MEDS ORDERED: diphenhydrAMINE 50 MG/ML 1 ML VIAL IVP PRN (09:13)
[2020-06-10] MEDS ORDERED: NALOXONE 0.4 MG/ML 1 ML VIAL IV PRN (09:13)
[2020-06-10] MEDS ORDERED: MORPHINE SULFATE 2 MG/ML SYRINGE IVP PRN (09:13)
[2020-06-10] MEDS ORDERED: ONDANSETRON 4 MG/2 ML VIAL IVP PRN ×2 (09:13→09:27)
[2020-06-10] MEDS ORDERED: fentaNYL (PF) 50 MCG/ML 2 ML AMP IV ONE ×2 (15:09)
[2020-06-10] MEDS ORDERED: diphenhydrAMINE 50 MG/ML 1 ML VIAL IVP ONE (15:09)
[2020-06-10] MEDS: KETOROLAC 15 MG/ML 1 ML VIAL IVP PRN ×2 (15:53→23:06)
[2020-06-10] MEDS: SIMETHICONE 80 MG CHEWABLE PO SCH ×2 (16:05→23:06)
[2020-06-10] MEDS: LACTATED RINGERS 1,000 ML IV SCH (16:05)
[2020-06-10] MEDS: QUEtiapine 50 MG TAB PO SCH (21:07)
[2020-06-10] MEDS: ACYCLOVIR 800 MG TAB PO SCH (21:08)
[2020-06-11] MEDS: LACTATED RINGERS 1,000 ML IV SCH (05:01)
[2020-06-11] MEDS: KETOROLAC 15 MG/ML 1 ML VIAL IVP PRN ×2 (05:01→13:15)
--- NOTE | 2020-06-11 06:08 | P.PN ---
Progress Note - Text Progress Note Date: 06/11/20 34-year-old female status post total abdominal hysterectomy with the Duramorph spinal. Patient doing well postoperatively no complications. Denies any nausea, pruritus, headaches. VAS ranges from a 2-5 out of 10 in severity depending on Activity.
[2020-06-11 06:20] LABS: Basophils % (A) 0 %; Eosinophils # (A) 0.1 k/uL (0-0.7); Eosinophils % (A) 1 %; HCT 33.5 % (34.0-46.0); Lymphocytes # (A) 1.2 k/uL (1.0-4.8); Lymphocytes % (A) 17 %; MCH 31.9 pg (25.0-35.0); MCHC 32.7 g/dL (31.0-37.0); MCV 97.4 fL (80.0-100.0); Mean Platelet Volume 8.5; Monocytes # (A) 0.4 k/uL (0-1.0); Monocytes % (A) 6 %; Neutrophils # (A) 5.6 k/uL (1.3-7.7); Neutrophils % (A) 76 %; Platelet Count 135 k/uL (150-450); RBC 3.44 m/uL (3.80-5.40); RDW 12.6 % (11.5-15.5); WBC 7.3 k/uL (3.8-10.6)
--- NOTE | 2020-06-11 06:33 | P.PN ---
Progress Note - Text Progress Note Date: 06/11/20 Postoperative day #1. Patient is resting without complaints. Vital signs are stable and she is afebrile. Incision is intact and dry. Patient's having excellent urine output and adequate pain control. CBC shows her hemoglobin to be good at 11 however her platelets have decreased 135 so repeat her CBC tomorrow. Plan today is to discontinue her catheter, encourage ambulation, allow the patient to shower, and continue regular diet.
[2020-06-11] MEDS: SIMETHICONE 80 MG CHEWABLE PO SCH ×4 (09:07→21:55)
[2020-06-11] MEDS: ACYCLOVIR 800 MG TAB PO SCH ×2 (09:08→21:55)
[2020-06-11] MEDS: HYDROcodone/APAP 5-325MG 1 EACH TAB PO PRN ×3 (09:17→21:53)
[2020-06-11] MEDS ORDERED: NALOXONE 0.4 MG/ML 1 ML VIAL IV PRN (09:33)
[2020-06-11] MEDS: IBUPROFEN 600 MG TAB PO PRN (19:29)
[2020-06-11] MEDS: QUEtiapine 50 MG TAB PO SCH (21:55)
[2020-06-12] MEDS: HYDROcodone/APAP 5-325MG 1 EACH TAB PO PRN ×4 (02:04→14:34)
[2020-06-12 06:15] LABS: Basophils % (A) 0 %; Eosinophils # (A) 0.3 k/uL (0-0.7); Eosinophils % (A) 6 %; HCT 33.9 % (34.0-46.0); HGB 11.2 gm/dL (11.4-16.0); Lymphocytes # (A) 1.4 k/uL (1.0-4.8); Lymphocytes % (A) 24 %; MCH 31.9 pg (25.0-35.0); MCHC 33.1 g/dL (31.0-37.0); MCV 96.6 fL (80.0-100.0); Monocytes # (A) 0.3 k/uL (0-1.0); Monocytes % (A) 6 %; Neutrophils # (A) 3.6 k/uL (1.3-7.7); Neutrophils % (A) 63 %; Platelet Count 144 k/uL (150-450); RBC 3.51 m/uL (3.80-5.40); RDW 12.7 % (11.5-15.5); WBC 5.7 k/uL (3.8-10.6)
--- NOTE | 2020-06-12 06:27 | P.PN ---
Progress Note - Text Progress Note Date: 06/12/20 Postoperative day #2. Patient is having some increased pain but still is wishing to go home today she's tolerating regular diet, urinating, ambulating without difficulty. Patient's vital signs are stable and she is afebrile. Repeat CBC shows hemoglobin to be normal and her platelets are up to 144. Exam shows her incision to be intact and dry. Her abdomen is soft and appropriately tender. My impression is a normal postoperative course. Plan is to continue routine postoperative care discharge home later today if the patient desires otherwise we'll send her home tomorrow.
--- NOTE | 2020-06-12 06:33 | P.DS ---
Providers Date of admission: 06/10/20 05:55 Expected date of discharge: 06/12/20 Attending physician: Bill Perez Primary care physician: Chito Becker - Discharge Diagnosis(es) (1) Uterine fibroid Current Visit: No Status: Acute (2) Menorrhagia Current Visit: No Status: Acute (3) Dysmenorrhea Current Visit: No Status: Acute Hospital Course: Please see dictated H&P for intimate details of this patient's admission. Brief summary this is a pleasant 34-year-old multiparous patient who is admitted for hysterectomy secondary to dysmenorrhea, menorrhagia, known uterine fibroids. Patient undergoes a total Howie hysterectomy and bilateral salpingectomy. Please see dictated operative note postoperative patient does well and on postoperative day #2 patient wishes to go home. Patient's felt to be stable for discharge home follow up with me in 1 week. Procedures: Total abdominal hysterectomy and bilateral salpingectomy Patient Condition at Discharge: Good Plan - Discharge Summary Discharge Rx Participant: Yes New Discharge Prescriptions: New Ibuprofen [Motrin] 600 mg PO Q6HR PRN #40 tab PRN Reason: Mild Discomfort HYDROcodone/APAP 5-325MG [[place] 5-325] 1 each PO Q4HR PRN #18 tab PRN Reason: Pain No Action Acyclovir [Zovirax] 800 mg PO DAILY PRN PRN Reason: HERPES Albuterol Inhaler (Mhu) [Ventolin Inhaler] 2 puff INHALATION Q4HR PRN PRN Reason: Dyspnea QUEtiapine [SEROquel] 50 mg PO HS Naproxen Sodium [Aleve] 440 mg PO DAILY PRN PRN Reason: Pain clonazePAM [KlonoPIN] 1 mg PO BID PRN PRN Reason: ANXIETY Famotidine 20 mg PO BID PRN PRN Reason: Heartburn Discharge Medication List Acyclovir [Zovirax] 800 mg PO DAILY PRN 06/20/14 [History] Albuterol Inhaler (Mhu) [Ventolin Inhaler] 2 puff INHALATION Q4HR PRN 06/20/14 [History] QUEtiapine [SEROquel] 50 mg PO HS 02/18/17 [History] Naproxen Sodium [Aleve] 440 mg PO DAILY PRN 06/03/20 [History] clonazePAM [KlonoPIN] 1 mg PO BID PRN 06/03/20 [History] Famotidine 20 mg PO BID PRN 06/04/20 [History] HYDROcodone/APAP 5-325MG [[place] 5-325] 1 each PO Q4HR PRN #18 tab 06/12/20 [Rx] Ibuprofen [Motrin] 600 mg PO Q6HR PRN #40 tab 06/12/20 [Rx] Follow up Appointment(s)/Referral(s): Bill Perez MD [STAFF PHYSICIAN] - 1 Week Patient Instructions/Handouts: Hysterectomy (DC) Activity/Diet/Wound Care/Special Instructions: No driving as directed. No intercourse or anything per vagina for 6 weeks. No strenuous activity or heavy lifting for 6 weeks. Please call if any fever, chills, excessive vaginal bleeding, and/or abdominal pain. Discharge Disposition: HOME SELF-CARE
[2020-06-12] MEDS: IBUPROFEN 600 MG TAB PO PRN ×2 (07:27→13:22)
[2020-06-12] MEDS: SIMETHICONE 80 MG CHEWABLE PO SCH ×2 (07:27→13:23)
[2020-06-12 13:28] VITALS: BP 122/78; PULSE 85; RESP 18; TEMP 97.8
== END 2020-06-12 15:10 | disposition home or self-care (01) | DRG 743 ==
LOC: 2ORMAIN 05:55 → 4FBP 08:43
PROVIDERS: ADMIT Obstetrics & Gynecology; ATTEND Obstetrics & Gynecology
PROC: 0UT90ZZ Resection of Uterus, Open Approach (ICD-10-PCS; principal; 2020-06-10 07:30)
PROC: 0UT70ZZ Resection of Bilateral Fallopian Tubes, Open Approach (ICD-10-PCS; principal; 2020-06-10 07:30)
DX: N94.6 Dysmenorrhea, unspecified (principal); N92.0 Excessive and frequent menstruation with regular cycle; D25.0 Submucous leiomyoma of uterus; F32.9 Major depressive disorder, single episode, unspecified; J45.909 Unspecified asthma, uncomplicated; M19.90 Unspecified osteoarthritis, unspecified site; Z79.899 Other long term (current) drug therapy; Z87.891 Personal history of nicotine dependence; Z88.5 Allergy status to narcotic agent; Z88.6 Allergy status to analgesic agent; Z88.1 Allergy status to other antibiotic agents; Z91.040 Latex allergy status
CPT/HCPCS: 36415; 80048; 81025; 85025; 86850; 86900; 86901; 88307

== ENCOUNTER 2020-08-01 01:15 | Emergency (ER) | payer BC ==
[2020-08-01 01:22] VITALS: TEMP 98.4
[2020-08-01] MEDS ORDERED: SODIUM CHLORIDE 0.9% 1,000 ML IV STA (01:28)
[2020-08-01] MEDS ORDERED: LORazepam 2 MG/ML INJ IV STA (01:29)
--- NOTE | 2020-08-01 01:31 | ED ---
Chest Pain HPI - General Chief Complaint: Chest Pain Stated Complaint: Chest pain Time Seen by Provider: 08/01/20 01:26 Source: patient, RN notes reviewed, old records reviewed Mode of arrival: ambulatory Limitations: no limitations - History of Present Illness Initial Comments: This is a 34-year-old female to the ER for evaluation patient resents today after syncopal episode last night as well as severe chest pain. Patient having severe also anxiety and elevated heart rate. Patient again did have a syncopal episode last night and chest pain and anxiety has been persistent again with shortness of breath patient is recent travel history or sick contacts no prior history of similar complaint MD Complaint: chest pain, other (syncope) -: days(s) Onset: during rest, during exertion, awoke with symptoms Pain Location: substernal Pain Radiation: none Severity: moderate Severity scale (1-10): 7 Quality: sharp Consistency: intermittent Improves With: nothing Worsens With: exertion Anginal Symptoms: dyspnea Other Symptoms: palpitations Treatments Prior to Arrival: none - Related Data Home Medications Medication Instructions Recorded Confirmed Acyclovir [Zovirax] 800 mg PO DAILY PRN 06/20/14 06/10/20 Albuterol Inhaler (Mhu) [Ventolin 2 puff INHALATION Q4HR PRN 06/20/14 06/10/20 Inhaler] QUEtiapine [SEROquel] 50 mg PO HS 02/18/17 06/10/20 Naproxen Sodium [Aleve] 440 mg PO DAILY PRN 06/03/20 06/10/20 clonazePAM [KlonoPIN] 1 mg PO BID PRN 06/03/20 06/10/20 Famotidine 20 mg PO BID PRN 06/04/20 06/10/20 Previous Rx's Medication Instructions Recorded HYDROcodone/APAP 5-325MG [[place] 1 each PO Q4HR PRN #18 tab 06/12/20 5-325] Ibuprofen [Motrin] 600 mg PO Q6HR PRN #40 tab 06/12/20 Allergies Allergy/AdvReac Type Severity Reaction Status Date / Time acetaminophen Allergy Itching Verified 08/01/20 01:22 [From Tylenol-Codeine] adhesive tape Allergy Rash/Hives Verified 08/01/20 01:22 ciprofloxacin [From Cipro] Allergy Rapid Verified 08/01/20 01:22 Heart Rate codeine Allergy Itching Verified 08/01/20 01:22 [From Tylenol-Codeine] latex Allergy Rash/Hives, Verified 08/01/20 01:22 BURNING SKIN Review of Systems ROS Statement: Those systems with pertinent positive or pertinent negative responses have been documented in the HPI. ROS Other: All systems not noted in ROS Statement are negative. EKG Findings - EKG Comments: EKG Findings:: EKG is sinus tachycardia 116 [place] 146 QRS 88 QTc 461 Past Medical History Past Medical History: Asthma, Osteoarthritis (OA) History of Any Multi-Drug Resistant Organisms: None Reported Past Surgical History: Section, Tubal Ligation Additional Past Surgical History / Comment(s): LEEP Past Anesthesia/Blood Transfusion Reactions: No Reported Reaction Past Psychological History: Anxiety, Bipolar, Depression Smoking Status: Current every day smoker Past Alcohol Use History: Occasional Past Drug Use History: None Reported - Past Family History Mother Family Medical History: No Reported History General Exam Limitations: no limitations General appearance: anxious Head exam: Present: atraumatic, normocephalic, normal inspection Eye exam: Present: normal appearance, PERRL, EOMI. Absent: scleral icterus, conjunctival injection, periorbital swelling ENT exam: Present: normal exam, mucous membranes moist Neck exam: Present: normal inspection. Absent: tenderness, meningismus, lymphadenopathy Respiratory exam: Present: normal lung sounds bilaterally. Absent: respiratory distress, wheezes, rales, rhonchi, stridor Cardiovascular Exam: Present: normal rhythm, tachycardia, normal heart sounds. Absent: systolic murmur, diastolic murmur, rubs, gallop, clicks GI/Abdominal exam: Present: soft, normal bowel sounds. Absent: distended, tenderness, guarding, rebound, rigid Extremities exam: Present: normal inspection, full ROM, normal capillary refill. Absent: tenderness, pedal edema, joint swelling, calf tenderness Back exam: Present: normal inspection Neurological exam: Present: alert, oriented X3, CN II-XII intact Psychiatric exam: Present: normal affect, normal mood Skin exam: Present: warm, dry, intact, normal color. Absent: rash Course Vital Signs 08/01/20 08/01/20 01:20 02:21 Temperature 98.4 F Pulse Rate 139 H 99 Respiratory 20 Rate Blood Pressure 121/85 O2 Sat by Pulse 100 Oximetry - Reevaluation(s) Reevaluation #1: 10/15/20 01:30 Medical record is reviewed Reevaluation #2: 08/01/20 02:43 Patient is symptom is improved, heart rate is improved Chest Pain MDM - MDM 34 female to the ER for persistent tachycardia syncopal episode and chest pain. Patient anxiety reaction as all testing is normal patient can be discharged home Disposition Clinical Impression: Atypical chest pain, Chest pain, Anxiety, Tachycardia, Syncope Disposition: HOME SELF-CARE Condition: Good Instructions (If sedation given, give patient instructions): Chest Pain (ED), Syncope (ED) Is patient prescribed a controlled substance at d/c from ED?: No Referrals: Yosvany De La Cruz MD [Primary Care Provider] - 1-2 days
[2020-08-01 01:50] LABS: Basophils % (A) 1 %; Eosinophils # (A) 0.3 k/uL (0-0.7); Eosinophils % (A) 4 %; HCT 43.6 % (34.0-46.0); Lymphocytes # (A) 1.6 k/uL (1.0-4.8); Lymphocytes % (A) 23 %; MCH 32.2 pg (25.0-35.0); MCHC 34.1 g/dL (31.0-37.0); MCV 94.5 fL (80.0-100.0); Mean Platelet Volume 7.1; Monocytes # (A) 0.4 k/uL (0-1.0); Monocytes % (A) 5 %; Neutrophils # (A) 4.4 k/uL (1.3-7.7); Neutrophils % (A) 66 %; Platelet Count 199 k/uL (150-450); RBC 4.61 m/uL (3.80-5.40); RDW 12.1 % (11.5-15.5); WBC 6.6 k/uL (3.8-10.6)
[2020-08-01] MEDS ORDERED: ONDANSETRON 4 MG/2 ML VIAL IVP STA (01:50)
[2020-08-01 01:53] LABS: HGB 14.9 gm/dL (11.4-16.0)
[2020-08-01 01:59] LABS: D-Dimer 0.27 mg/L FEU (<0.60); Partial Thromboplastin Time 24.2 sec (22.0-30.0); Prothrombin Time 10.3 sec (9.0-12.0)
[2020-08-01 02:00] LABS: ALT 24 U/L (4-34); AST 31 U/L (14-36); African American GFR (CKD) >90 (>60 ml/min/1.73 sqM); Albumin 4.6 g/dL (3.5-5.0); Alkaline Phosphatase 53 U/L (38-126); Anion Gap 8 mmol/L; Blood Urea Nitrogen 13 mg/dL (7-17); Calcium 9.7 mg/dL (8.4-10.2); Carbon Dioxide 24 mmol/L (22-30); Chloride 107 mmol/L (98-107); Glucose 108 mg/dL (74-99); Lipase 105 U/L (23-300); Magnesium 1.9 mg/dL (1.6-2.3); Non-African American GFR(CKD) 81 (>60 ml/min/1.73 sqM); Potassium 4.1 mmol/L (3.5-5.1); Sodium 139 mmol/L (137-145); Total Bilirubin 0.5 mg/dL (0.2-1.3); Total Protein 7.6 g/dL (6.3-8.2)
--- NOTE | 2020-08-01 02:29 | CT ---
EXAM: CT Angiography Chest With Intravenous Contrast CLINICAL HISTORY: Shortness of breath and chest pain. TECHNIQUE: Axial computed tomographic angiography images of the chest with intravenous contrast. CTDI is 13.47 mGy and DLP is 365.7 mGy-cm. This CT exam was performed using one or more of the following dose reduction techniques: automated exposure control, adjustment of the mA and/or kV according to patient size, and/or use of iterative reconstruction technique. 3D reconstructed images were created and reviewed. COMPARISON: No relevant prior studies available. FINDINGS: Pulmonary arteries: Unremarkable. No pulmonary embolism. Aorta: No acute findings. No thoracic aortic aneurysm. Lungs: Unremarkable. No mass. No consolidation. Pleural space: Unremarkable. No significant effusion. No pneumothorax. Heart: Unremarkable. No cardiomegaly. No significant pericardial effusion. No evidence of RV dysfunction. Bones/joints: No acute fracture. No dislocation. Soft tissues: Unremarkable. Lymph nodes: Unremarkable. No enlarged lymph nodes. IMPRESSION: No evidence of pulmonary emboli or acute cardiopulmonary process.
[2020-08-01 02:51] VITALS: BP 107/65; PULSE 100; RESP 18
== END 2020-08-01 03:45 | disposition home or self-care (01) ==
LOC: EC 01:15
DX: R07.89 Other chest pain (principal); R55 Syncope and collapse; R00.0 Tachycardia, unspecified; F41.9 Anxiety disorder, unspecified; J45.909 Unspecified asthma, uncomplicated; M19.90 Unspecified osteoarthritis, unspecified site; F31.9 Bipolar disorder, unspecified; F17.200 Nicotine dependence, unspecified, uncomplicated; Z79.899 Other long term (current) drug therapy; Z88.6 Allergy status to analgesic agent; Z91.048 Other nonmedicinal substance allergy status; Z88.1 Allergy status to other antibiotic agents; Z88.5 Allergy status to narcotic agent; Z91.040 Latex allergy status
CPT/HCPCS: 36415; 93005; 85379; 83880; 80053; 83690; 83735; 84484; 85025; 85610; 85730; 71275; 99285; 96374; 96375; 96361 ×2; J2060; J2405; Q9967

== ENCOUNTER 2021-05-29 17:10 | Emergency (ER) | payer BC ==
[2021-05-29] MEDS ORDERED: ASPIRIN 81 MG PO STA (17:56)
[2021-05-29] MEDS ORDERED: IPRATROPIUM-ALBUTEROL 3 ML NEB INHALATION STA (17:57)
[2021-05-29] MEDS ORDERED: KETOROLAC 15 MG/ML 1 ML VIAL IVP STA (17:57)
--- NOTE | 2021-05-29 18:10 | ED ---
Chest Pain HPI - General Chief Complaint: Chest Pain Stated Complaint: Chest Pain/SOB Time Seen by Provider: 05/29/21 17:48 Source: patient Mode of arrival: ambulatory Limitations: no limitations - History of Present Illness Initial Comments: This 35-year-old female presents complaining of some right sided lower chest pain which is been present for approximately 2 years. It is a sharp pain which radiates posteriorly. There is been somewhat worse over the past day. She also complains of shortness of breath with a nonproductive cough and shortness of breath over the last 1 day. She denies any actual fever. She denies any leg swelling. No history of DVT or PE. She does state that she was exposed to covert this past week but does also have a history of having covert herself with subsequent immunizations 2. She does utilize tobacco socially. She has a history of asthma but denies any known COPD. Her chest pain is easily reproducible with palpation. It is described as a sharp type of pain. No other complaints or modifying factors. - Related Data Home Medications Medication Instructions Recorded Confirmed QUEtiapine [SEROquel] 75 mg PO HS 02/18/17 05/29/21 Naproxen Sodium [Aleve] 440 mg PO BID PRN 06/03/20 05/29/21 Famotidine 20 mg PO HS 06/04/20 05/29/21 LORazepam [Ativan] 1 mg PO HS 05/29/21 05/29/21 Previous Rx's Medication Instructions Recorded Albuterol Nebulized [Ventolin 2.5 mg INHALATION Q4H PRN #50 each 05/29/21 Nebulized] Doxycycline Hyclate [Vibramycin] 100 mg PO BID #20 cap 05/29/21 Promethazine 6.25MG/5Ml [Phenergan 6.25 mg PO Q6H PRN #100 ml 05/29/21 Syrup] predniSONE [Deltasone] 20 mg PO BID #10 tab 05/29/21 Allergies Allergy/AdvReac Type Severity Reaction Status Date / Time acetaminophen Allergy Itching Verified 05/29/21 19:31 [From Tylenol-Codeine] adhesive tape Allergy Rash/Hives Verified 05/29/21 19:31 ciprofloxacin [From Cipro] Allergy Rapid Verified 05/29/21 19:31 Heart Rate codeine Allergy Itching Verified 08/12/21 19:31 [From Tylenol-Codeine] latex Allergy Rash/Hives, Verified 05/29/21 19:31 BURNING SKIN Review of Systems ROS Statement: Those systems with pertinent positive or pertinent negative responses have been documented in the HPI. ROS Other: All systems not noted in ROS Statement are negative. Past Medical History Past Medical History: Asthma, Osteoarthritis (OA) History of Any Multi-Drug Resistant Organisms: None Reported Past Surgical History: Section, Hysterectomy, Tubal Ligation Additional Past Surgical History / Comment(s): LEEP Past Anesthesia/Blood Transfusion Reactions: No Reported Reaction Past Psychological History: Anxiety, Bipolar, Depression Smoking Status: Current some day smoker Past Alcohol Use History: Occasional Past Drug Use History: None Reported - Past Family History Mother Family Medical History: No Reported History General Exam - General Exam Comments Initial Comments: GENERAL: The patient is well nourished and well hydrated. VITAL SIGNS: Heart rate, blood pressure, respiratory rate reviewed as recorded in nurse's notes. EYES: Pupils are round and reactive. Extraocular movements are intact. No conjunctival / lid redness or swelling. ENT: No external evidence of injury, swelling, or ecchymosis. Airway is patent. Throat is clear. NECK: Nontender. No swelling or evidence of injury. No subcutaneous emphysema. Trachea is midline. No thyroid mass. HEART: Regular rate and rhythm. Good peripheral pulses. LUNGS/CHEST: There is tenderness upon palpation of the right lower chest wall. Lungs are clear to auscultation. No ecchymosis, subcutaneous emphysema. ABDOMEN: Abdomen soft without tenderness. No palpable masses or organomegaly. No peritoneal signs. No abdominal wall swelling or ecchymosis. EXTREMITIES: No extremity tenderness. Normal muscle tone and function. No thoracolumbar tenderness. NEUROLOGIC: Sensation is grossly intact. Cranial nerve exam reveals face is symmetrical, tongue is midline, speech is clear. SKIN: No abrasions or ecchymosis is noted. No induration or masses noted. PSYCHIATRIC: Alert and oriented. Appropriate behavior and judgment. Limitations: no limitations Course Vital Signs 05/29/21 05/29/21 05/29/21 17:27 17:56 18:31 Temperature 98.0 F Pulse Rate 84 Respiratory 18 20 20 Rate Blood Pressure 120/81 O2 Sat by Pulse 100 Oximetry 05/29/21 05/29/21 05/29/21 19:15 19:20 19:28 Temperature Pulse Rate 81 82 90 Respiratory 20 Rate Blood Pressure 114/82 O2 Sat by Pulse 99 Oximetry 05/29/21 19:47 Temperature 97.4 F L Pulse Rate 98 Respiratory 20 Rate Blood Pressure 109/74 O2 Sat by Pulse 98 Oximetry Chest Pain MDM - MDM The patient was seen and examined. All diagnostics are reviewed. An IV is established and she is placed on the lunchroom monitor. The EKG shows a normal sinus rhythm at a rate of 68. There is no acute ST-T wave changes identified. The DC intervals 152, QRS duration is 88, and the QTC intervals 414. She does receive Toradol as well as an aspirin a DuoNeb breathing treatment. She relates that she is feeling much improved on recheck. The chest x-ray does not show any acute processes. The laboratory was all essentially within normal limits with a negative d-dimer and negative troponin. Overall, it is felt as though she likely does have a bronchitis. She has a nebulizer machine at home. She will be prescribed an antibiotic as well as prednisone and albuterol. Return parameters are discussed. Close follow-up recommended. Disposition Clinical Impression: Chest pain, Dyspnea, Cough, Bronchitis Disposition: HOME SELF-CARE Condition: Good Instructions (If sedation given, give patient instructions): Chest Pain (ED), Acute Bronchitis (ED) Prescriptions: predniSONE [Deltasone] 20 mg PO BID #10 tab Promethazine 6.25MG/5Ml [Phenergan Syrup] 6.25 mg PO Q6H PRN #100 ml PRN Reason: Cough Albuterol Nebulized [Ventolin Nebulized] 2.5 mg INHALATION Q4H PRN #50 each PRN Reason: Cough Doxycycline Hyclate [Vibramycin] 100 mg PO BID #20 cap Is patient prescribed a controlled substance at d/c from ED?: No Referrals: Yosvany De La Cruz MD [Primary Care Provider] - 1-2 days Time of Disposition: 20:15
[2021-05-29 18:33] LABS: Basophils # (A) 0.1 k/uL (0-0.2); Basophils % (A) 1 %; Eosinophils # (A) 0.2 k/uL (0-0.7); Eosinophils % (A) 4 %; HCT 41.8 % (34.0-46.0); HGB 14.7 gm/dL (11.4-16.0); Lymphocytes % (A) 20 %; MCH 33.7 pg (25.0-35.0); MCHC 35.2 g/dL (31.0-37.0); MCV 95.7 fL (80.0-100.0); Mean Platelet Volume 7.4; Monocytes # (A) 0.2 k/uL (0-1.0); Monocytes % (A) 5 %; Neutrophils # (A) 3.4 k/uL (1.3-7.7); Neutrophils % (A) 69 %; Platelet Count 186 k/uL (150-450); RBC 4.36 m/uL (3.80-5.40); RDW 13.2 % (11.5-15.5); WBC 4.9 k/uL (3.8-10.6)
[2021-05-29 18:43] LABS: ALT 26 U/L (4-34); AST 30 U/L (14-36); African American GFR (CKD) >90 (>60 ml/min/1.73 sqM); Albumin 4.3 g/dL (3.5-5.0); Alkaline Phosphatase 64 U/L (38-126); Anion Gap 9 mmol/L; Blood Urea Nitrogen 9 mg/dL (7-17); Calcium 9.5 mg/dL (8.4-10.2); Carbon Dioxide 21 mmol/L (22-30); Chloride 107 mmol/L (98-107); Glucose 135 mg/dL (74-99); Non-African American GFR(CKD) >90 (>60 ml/min/1.73 sqM); Sodium 137 mmol/L (137-145); Total Bilirubin 0.3 mg/dL (0.2-1.3); Total Protein 6.9 g/dL (6.3-8.2)
--- NOTE | 2021-05-29 18:43 | XR ---
EXAMINATION TYPE: XR chest 2V DATE OF EXAM: 05/29/2021 COMPARISON: CT 08/01/2020. HISTORY: Chest pain TECHNIQUE: Frontal and lateral views of the chest are obtained. FINDINGS: There is no focal air space opacity, pleural effusion, or pneumothorax seen. The cardiac silhouette size is within normal limits. The osseous structures are intact. IMPRESSION: No acute cardiopulmonary process.
[2021-05-29 18:46] LABS: Partial Thromboplastin Time 22.9 sec (22.0-30.0); Prothrombin Time 10.9 sec (9.0-12.0)
[2021-05-29 20:39] VITALS: BP 115/73; PULSE 90; RESP 18; TEMP 98
== END 2021-05-29 20:30 | disposition home or self-care (01) ==
LOC: EC 17:10
DX: J40 Bronchitis, not specified as acute or chronic (principal); J45.909 Unspecified asthma, uncomplicated; F17.200 Nicotine dependence, unspecified, uncomplicated; Z88.6 Allergy status to analgesic agent; Z88.1 Allergy status to other antibiotic agents; Z91.040 Latex allergy status; Z88.5 Allergy status to narcotic agent; Z20.822 Contact with and (suspected) exposure to COVID-19
CPT/HCPCS: 36415; 94640; 93005; 85379; 83880; 80053; 84484; 85025; 85610; 85730; 87635; 71046; 99285; 96374; J1885

== ENCOUNTER → 2021-09-23 | Outpatient (CLI) | payer BC ==
--- NOTE | 2021-09-23 10:30 | US ---
EXAMINATION TYPE: US abdomen complete DATE OF EXAM: 09/23/2021 COMPARISON: CT abdomen and pelvis January 11, 2020 CLINICAL HISTORY: R10.11 Right upper quadrant pain. RUQ pain. EXAM MEASUREMENTS: Liver Length: 15.7 cm Gallbladder Wall: 0.2 cm CBD: 0.4 cm Spleen: 11.9 cm Right Kidney: 9.0 x 4.4 x 3.6 cm Left Kidney: 9.7 x 3.6 x 4.0 cm Pancreas: Tail obscured by overlying bowel gas Liver: Heterogenous Gallbladder: Possible polyp= 0.4 x 0.4 cm Evidence for sonographic Pacheco's sign: neg CBD: wnl Spleen: wnl Right Kidney: No hydronephrosis or masses seen Left Kidney: No hydronephrosis or masses seen Upper IVC: wnl Abd Aorta: No AAA visualized The visualized liver slightly heterogeneous. The intrahepatic portion of the IVC and visualized abdo teetee aorta are within normal limits. There is no evidence of shadowing mobile cholelithiasis. Incid ental 4 mm nonmobile hyperechoic nonshadowing focus or polyp. Common bile duct is unremarkable. The visualized portions of the pancreas are homogenous. The spleen is unremarkable. Kidneys are symmet waldemar and free of hydronephrosis. No renal lesions are seen. IMPRESSION: No acute findings are evident.
== END | disposition home or self-care (01) ==
LOC: RADUSWWP 09:45
PROVIDERS: ATTEND Internal Medicine
DX: R10.11 Right upper quadrant pain (principal)
CPT/HCPCS: 76700

== ENCOUNTER 2021-12-12 08:51 | Day surgery (SDC) | payer BC ==
[2021-12-09 15:21] VITALS: BMI 28.3
[2021-12-12 09:15] VITALS: TEMP 97
[2021-12-12] MEDS ORDERED: LACTATED RINGERS 1,000 ML IV ONE (09:22)
[2021-12-12] MEDS ORDERED: LIDOCAINE 1% INJ 10MG/ML (20 ML MDV) ONE (09:48)
[2021-12-12] MEDS ORDERED: PROPOFOL 10 MG/ML 20 ML VIAL IV ONE (09:48)
--- NOTE | 2021-12-12 10:07 | P.PCN ---
Date of Procedure: 12/12/21 Procedure(s) Performed: BRIEF HISTORY: Patient is a 36-year-old pleasant white female scheduled for an elective colonoscopy as a part of evaluation of change in bowel habits for the last several years duration. She is been having alternating diarrhea and constipation but no rectal bleeding. PROCEDURE PERFORMED: Colonoscopy. PREOPERATIVE DIAGNOSIS: Change in bowel habits. IV sedation per Anesthesia. PROCEDURE: After informed consent was obtained, the patient, was brought into the endoscopy unit. IV sedation was administered by Anesthesia under continuous monitoring. Digital rectal examination was normal. Initially the Olympus CF-160 flexible video colonoscope was then inserted in the rectum, gradually advanced into the cecum without any difficulty. Careful examination was performed as the scope was gradually being withdrawn. Ileocecal valve and the appendiceal orifice were visualized and appeared normal. Prep was excellent. Mucosa of the cecum, ascending colon, transverse colon, descending colon, sigmoid colon, and rectum appeared normal. Retroflexion was performed in the rectum and no lesions were seen. The patient tolerated the procedure well. IMPRESSION: Normal-appearing colon from rectum to cecum with no evidence of colorectal neoplasia . RECOMMENDATIONS: Findings of this examination were discussed with the patient as well as a family. She was advised to continue with a high-fiber diet, take fiber supplements on a daily basis and use [id number] MiraLAX as needed for chronic constipation. She can have a repeat screening colonoscopy at age 44..
[2021-12-12 10:12] VITALS: RESP 16
[2021-12-12 10:26] VITALS: BP 123/80; PULSE 62
== END 2021-12-12 11:15 | disposition home or self-care (01) ==
LOC: ORWHC2ENDO 08:51
PROVIDERS: ATTEND Family Medicine
DX: R19.7 Diarrhea, unspecified (principal); K59.00 Constipation, unspecified; J45.909 Unspecified asthma, uncomplicated; K21.9 Gastro-esophageal reflux disease without esophagitis; K58.9 Irritable bowel syndrome, unspecified; Z79.899 Other long term (current) drug therapy; Z88.1 Allergy status to other antibiotic agents; Z91.040 Latex allergy status; Z88.5 Allergy status to narcotic agent; Z91.09 Other allergy status, other than to drugs and biological substances; Z98.890 Other specified postprocedural states; Z98.891 History of uterine scar from previous surgery; Z98.51 Tubal ligation status
CPT/HCPCS: 45378; J2001; J2704

== ENCOUNTER 2022-10-15 01:48 | Emergency (ER) | payer BC ==
[2022-10-15 02:40] VITALS: RESP 16; TEMP 97.5
[2022-10-15] MEDS ORDERED: FAMOTIDINE 20 MG/2 ML VIAL IV STA (03:09)
[2022-10-15] MEDS ORDERED: MAG HYDROX/AL HYDROX/SIMETH 30 ML, HYOSCYAMINE ELIXIR 10 ML, LIDOCAINE VISCOUS 2% 10 ML PO STA ×3 (03:09)
--- NOTE | 2022-10-15 03:53 | ED ---
General Adult HPI - General Chief complaint: Abdominal Pain Stated complaint: Abdominal pain Time Seen by Provider: 10/15/22 02:40 Source: patient Mode of arrival: ambulatory - History of Present Illness Initial comments: This is a 36-year-old female with a past medical history including anxiety, depression, panic attacks and GERD presents emergency department for epigastric abdominal pain and burning. The patient stated this pain has been present the last 3 days and worsening intimately today. The patient stated that it started out as a gnawing pain but is now progressed to burning and stabbing. The patient did report that she had GERD but stated that it felt different from this. The patient did state that she denied any radiation of this pain and stated that the pain was not in the right upper quadrant. The patient denied any shortness of breath or difficulty in breathing with this pain. The patient stated that because the pain was continuous she looked on arrival and became very concerned about what she could have she came to the emergency department. The patient denied any other acute pain or complaints at this time. - Related Data Home Medications Medication Instructions Recorded Confirmed QUEtiapine [SEROquel] 75 mg PO HS 02/18/17 12/12/21 Naproxen Sodium [Aleve] 440 mg PO HS 06/03/20 12/12/21 Famotidine 20 mg PO HS 06/04/20 12/12/21 LORazepam [Ativan] 0.5 mg PO HS 05/29/21 12/12/21 Albuterol Inhaler [Ventolin Hfa 1 puff INHALATION DIRECTED PRN 12/09/21 12/12/21 Inhaler] Acetaminophen [Tylenol] 1,000 mg PO Q6HR PRN 12/12/21 12/12/21 Previous Rx's Medication Instructions Recorded Famotidine [Pepcid] 20 mg PO BID #60 tablet 10/15/22 Mag Hydrox/Al Hydrox/Simeth 30 ml PO BID #300 ml 10/15/22 [Maalox] Allergies Allergy/AdvReac Type Severity Reaction Status Date / Time adhesive tape Allergy Rash/Hives- Verified 10/15/22 02:40 NO PAPER TAPE ciprofloxacin [From Cipro] Allergy Rapid Verified 10/15/22 02:40 Heart Rate codeine Allergy Itching Verified 10/15/22 02:40 [From Tylenol-Codeine] latex Allergy Rash/Hives, Verified 10/15/22 02:40 BURNING SKIN Review of Systems ROS Statement: Those systems with pertinent positive or pertinent negative responses have been documented in the HPI. ROS Other: All systems not noted in ROS Statement are negative. Past Medical History Past Medical History: Asthma, GERD/Reflux, Osteoarthritis (OA) Additional Past Medical History / Comment(s): IBS WITH CONSTIPATION & DIARRHEA., HX OF COVID 4 WEEKS AGO., BACK AND KNEE PAIN History of Any Multi-Drug Resistant Organisms: None Reported Past Surgical History: Section, Hysterectomy, Tubal Ligation Additional Past Surgical History / Comment(s): LEEP PROCEDURE Past Anesthesia/Blood Transfusion Reactions: No Reported Reaction, Motion Sickn ess Past Psychological History: Anxiety, Bipolar, Depression Smoking Status: Former smoker Past Alcohol Use History: Occasional Past Drug Use History: None Reported - Past Family History Mother Family Medical History: No Reported History General Exam Limitations: no limitations General appearance: alert, in no apparent distress Head exam: Present: atraumatic, normocephalic, normal inspection Eye exam: Present: normal appearance, PERRL Pupils: Present: normal accommodation ENT exam: Present: normal exam, normal oropharynx, mucous membranes moist Neck exam: Present: normal inspection, full ROM Respiratory exam: Present: normal lung sounds bilaterally Cardiovascular Exam: Present: regular rate, normal rhythm, normal heart sounds GI/Abdominal exam: Present: soft, tenderness (Tenderness noted in the epigastric region), normal bowel sounds Extremities exam: Present: normal inspection, full ROM Back exam: Present: normal inspection, full ROM Neurological exam: Present: alert, oriented X3, CN II-XII intact Psychiatric exam: Present: normal affect, normal mood Skin exam: Present: warm, dry Course Vital Signs 10/15/22 10/15/22 02:35 04:39 Temperature 97.5 F L 97.5 F L Pulse Rate 110 H 102 H Respiratory 16 16 Rate Blood Pressure 122/74 118/68 O2 Sat by Pulse 97 98 Oximetry EKG Findings - EKG Comments: EKG Findings:: An EKG was obtained and was interpreted by myself. EKG showed a rate of 80, OR interval 163, QR baptist 92 and QTC of 393. This EKG showed a normal sinus rhythm with no ST segment elevation or depression noted. Medical Decision Making - Medical Decision Making Was pt. sent in by a medical professional or institution? @ -No Did you speak to anyone other than the patient for history? @ -No Did you review nursing and triage notes? @ -Nursing triage notes were reviewed Were old charts reviewed? @ -No Differential Diagnosis? @ -Acute cholecystitis, peptic ulcer disease, GERD, gastritis EKG interpreted by me (3pts min.)? @ -[none] X-rays interpreted by me (1pt min.)? @ -[none] CT interpreted by me (1pt min.)? @ -[none] U/S interpreted by me (1pt. min.)? @ -[none] What testing was considered but not performed? (CT, X-rays, U/S, labs)? Why? @An ultrasound was considered however the patient only had pain and tenderness to the epigastric region and did not have any right upper quadrant tenderness noted on my initial evaluation as well as my reevaluation. What meds were considered but not given? Why? @ -[none] Did you discuss the management of the patient with other professionals? @ -No Did you reconcile home meds? @ -[none] Was smoking cessation discussed for >3mins.? @ -[none] Was critical care preformed (if so, how long)? @ -[none] Were there social determinants of health that impacted care today? How? (Homelessness, low income, unemployed, alcoholism, drug addiction, transportation, low edu. Level, literacy, decrease access to med. care, assisted, rehab)? @ -No Was there de-escalation of care discussed even if they declined? (Discuss DNR or withdrawal of care, Hospice)? @ -No What co-morbidities impacted this encounter? (DM, HTN, Smoking, COPD, CAD, Cancer, CVA, Hep., AIDS, mental health diagnosis, sleep apnea, morbid obesity)? @ -Previous GERD, anxiety, panic attacks, depression Was patient admitted / discharged? @ -The patient was seen and evaluated emergency department. Physical exam, the patient was resting in bed without any acute distress. Vital signs admission were stable. The patient was mildly anxious secondary to what she "read on [employer] and all of the things that can kill me." The patient only had epigastric tenderness and did not have any right upper quadrant tenderness noted therefore an ultrasound was not performed at this time. The patient likely had peptic ulcer disease versus GERD in the setting of increased anxiety as well as panic attacks as she has not had her medications prescribed to her because her primary care physician would no longer do so. The patient was given a GI cocktail and laboratory workup was obtained. The patient had improvement of her symptoms after this medication was given and had a negative workup. The patient likely had peptic ulcer disease and was given a prescription for Maalox as well as Pepcid to be taken at home. The patient was advised to follow-up with her primary care physician but was also given follow-up to the inspector chief for further workup and evaluation. The patient was advised to report back to the emergency department if her pain and symptoms became acutely worse. She was agreeable to this and all of her questions were answered. The patient was discharged home in stable condition. Undiagnosed new problem with uncertain prognosis? @ -[none] Drug Therapy requiring intensive monitoring for toxicity (Heparin, Nitro, Insulin, Cardizem)? @ -[none] Were any procedures done? @ -[none] Diagnosis/symptom? @ -Epigastric abdominal pain, likely secondary to peptic ulcer disease versus GERD Acute, or Chronic, or Acute on Chronic? @ -Acute Uncomplicated (without systemic symptoms) or Complicated (systemic symptoms)? @ -Uncomplicated Side effects of treatment? @ -[none] Exacerbation, Progression, or Severe Exacerbation] @ -[no] Poses a threat to life or bodily function? @ -[no] - Lab Data Result diagrams: 10/15/22 03:30 10/15/22 03:30 Lab Results 10/15/22 10/15/22 10/15/22 Range/Units 03:30 03:30 03:30 WBC 6.2 (3.8-10.6) k/uL RBC 3.99 (3.80-5.40) m/uL Hgb 12.9 (11.4-16.0) gm/dL Hct 36.3 (34.0-46.0) % MCV 91.1 (80.0-100.0) fL MCH 32.3 (25.0-35.0) pg MCHC 35.4 (31.0-37.0) g/dL RDW 12.7 (11.5-15.5) % Plt Count 177 (150-450) k/uL MPV 8.0 Neutrophils % 68 % Lymphocytes % 23 % Monocytes % 5 % Eosinophils % 3 % Basophils % 0 % Neutrophils # 4.2 (1.3-7.7) k/uL Lymphocytes # 1.4 (1.0-4.8) k/uL Monocytes # 0.3 (0-1.0) k/uL Eosinophils # 0.2 (0-0.7) k/uL Basophils # 0.0 (0-0.2) k/uL Sodium 137 (137-145) mmol/L Potassium 4.2 (3.5-5.1) mmol/L Chloride 109 H (98-107) mmol/L Carbon Dioxide 19 L (22-30) mmol/L Anion Gap 9 mmol/L BUN 13 (7-17) mg/dL Creatinine 0.72 (0.52-1.04) mg/dL Est GFR (CKD-EPI)AfAm >90 (>60 ml/min/1.73 sqM) Est GFR (CKD-EPI)NonAf >90 (>60 ml/min/1.73 sqM) Glucose 94 (74-99) mg/dL Calcium 8.6 (8.4-10.2) mg/dL Magnesium 2.1 (1.6-2.3) mg/dL Total Bilirubin 0.7 (0.2-1.3) mg/dL AST 57 H (14-36) U/L ALT 48 H (4-34) U/L Alkaline Phosphatase 53 (38-126) U/L Troponin I (0.000-0.034) ng/mL Total Protein 7.1 (6.3-8.2) g/dL Albumin 4.2 (3.5-5.0) g/dL Lipase 74 (23-300) U/L Urine Color Urine Appearance (Clear) Urine pH (5.0-8.0) Ur Specific [place] (1.001-1.035) Urine Protein (Negative) Urine Glucose (UA) (Negative) Urine Ketones (Negative) Urine Blood (Negative) Urine Nitrite (Negative) Urine Bilirubin (Negative) Urine Urobilinogen (<2.0) mg/dL Ur Leukocyte Esterase (Negative) Urine HCG, Qual Not Detected (Not Detectd) 10/15/22 10/15/22 Range/Units 03:30 03:30 WBC (3.8-10.6) k/uL RBC (3.80-5.40) m/uL Hgb (11.4-16.0) gm/dL Hct (34.0-46.0) % MCV (80.0-100.0) fL MCH (25.0-35.0) pg MCHC (31.0-37.0) g/dL RDW (11.5-15.5) % Plt Count (150-450) k/uL MPV Neutrophils % % Lymphocytes % % Monocytes % % Eosinophils % % Basophils % % Neutrophils # (1.3-7.7) k/uL Lymphocytes # (1.0-4.8) k/uL Monocytes # (0-1.0) k/uL Eosinophils # (0-0.7) k/uL Basophils # (0-0.2) k/uL Sodium (137-145) mmol/L Potassium (3.5-5.1) mmol/L Chloride (98-107) mmol/L Carbon Dioxide (22-30) mmol/L Anion Gap mmol/L BUN (7-17) mg/dL Creatinine (0.52-1.04) mg/dL Est GFR (CKD-EPI)AfAm (>60 ml/min/1.73 sqM) Est GFR (CKD-EPI)NonAf (>60 ml/min/1.73 sqM) Glucose (74-99) mg/dL Calcium (8.4-10.2) mg/dL Magnesium (1.6-2.3) mg/dL Total Bilirubin (0.2-1.3) mg/dL AST (14-36) U/L ALT (4-34) U/L Alkaline Phosphatase (38-126) U/L Troponin I <0.012 (0.000-0.034) ng/mL Total Protein (6.3-8.2) g/dL Albumin (3.5-5.0) g/dL Lipase (23-300) U/L Urine Color Light Yellow Urine Appearance Clear (Clear) Urine pH 5.0 (5.0-8.0) Ur Specific [place] 1.011 (1.001-1.035) Urine Protein Negative (Negative) Urine Glucose (UA) Negative (Negative) Urine Ketones 1+ H (Negative) Urine Blood Negative (Negative) Urine Nitrite Negative (Negative) Urine Bilirubin Negative (Negative) Urine Urobilinogen <2.0 (<2.0) mg/dL Ur Leukocyte Esterase Negative (Negative) Urine HCG, Qual (Not Detectd) Disposition Clinical Impression: Gastritis, PUD (peptic ulcer disease) Disposition: HOME SELF-CARE Condition: Stable Instructions (If sedation given, give patient instructions): Peptic Ulcer (ED), Gastritis (DC) Prescriptions: Mag Hydrox/Al Hydrox/Simeth [Maalox] 30 ml PO BID #300 ml Famotidine [Pepcid] 20 mg PO BID #60 tablet Is patient prescribed a controlled substance at d/c from ED?: No Referrals: Yosvany De La Cruz MD [Primary Care Provider] - 1-2 days Deysi Sheth MD [STAFF PHYSICIAN] - 1-2 days Time of Disposition: 05:00
[2022-10-15 04:10] LABS: Basophils % (A) 0 %; Eosinophils # (A) 0.2 k/uL (0-0.7); Eosinophils % (A) 3 %; HCT 36.3 % (34.0-46.0); HGB 12.9 gm/dL (11.4-16.0); Lymphocytes # (A) 1.4 k/uL (1.0-4.8); Lymphocytes % (A) 23 %; MCH 32.3 pg (25.0-35.0); MCHC 35.4 g/dL (31.0-37.0); MCV 91.1 fL (80.0-100.0); Monocytes # (A) 0.3 k/uL (0-1.0); Monocytes % (A) 5 %; Neutrophils # (A) 4.2 k/uL (1.3-7.7); Neutrophils % (A) 68 %; Platelet Count 177 k/uL (150-450); RBC 3.99 m/uL (3.80-5.40); RDW 12.7 % (11.5-15.5); WBC 6.2 k/uL (3.8-10.6)
[2022-10-15 04:12] LABS: Appearance,Urine Clear (Clear); Bilirubin,Urine Negative (Negative); Blood,Urine Negative (Negative); Color,Urine Light Yellow; Glucose,Urine (UA) Negative (Negative); Ketones,Urine 1+ (Negative); Leukocyte Esterase,Urine Negative (Negative); Nitrite,Urine Negative (Negative); Protein,Urine Negative (Negative); Specific Gravity,Urine 1.011 (1.001-1.035); Urobilinogen,Urine <2.0 mg/dL (<2.0)
[2022-10-15 04:23] LABS: ALT 48 U/L (4-34); AST 57 U/L (14-36); African American GFR (CKD) >90 (>60 ml/min/1.73 sqM); Albumin 4.2 g/dL (3.5-5.0); Alkaline Phosphatase 53 U/L (38-126); Anion Gap 9 mmol/L; Blood Urea Nitrogen 13 mg/dL (7-17); Calcium 8.6 mg/dL (8.4-10.2); Carbon Dioxide 19 mmol/L (22-30); Chloride 109 mmol/L (98-107); Glucose 94 mg/dL (74-99); Lipase 74 U/L (23-300); Magnesium 2.1 mg/dL (1.6-2.3); Non-African American GFR(CKD) >90 (>60 ml/min/1.73 sqM); Sodium 137 mmol/L (137-145); Total Bilirubin 0.7 mg/dL (0.2-1.3); Total Protein 7.1 g/dL (6.3-8.2)
[2022-10-15 04:40] LABS: Potassium 4.2 mmol/L (3.5-5.1)
[2022-10-15 05:29] VITALS: BP 118/68; PULSE 102
== END 2022-10-15 05:20 | disposition home or self-care (01) ==
LOC: EC 01:48
DX: K29.70 Gastritis, unspecified, without bleeding (principal); J45.909 Unspecified asthma, uncomplicated; M19.90 Unspecified osteoarthritis, unspecified site; F41.9 Anxiety disorder, unspecified; F31.9 Bipolar disorder, unspecified; Z87.891 Personal history of nicotine dependence; Z88.1 Allergy status to other antibiotic agents; Z86.16 Personal history of COVID-19; Z88.5 Allergy status to narcotic agent; Z88.6 Allergy status to analgesic agent; Z88.8 Allergy status to other drugs, medicaments and biological substances; Z91.040 Latex allergy status; Z79.899 Other long term (current) drug therapy; Z79.1 Long term (current) use of non-steroidal anti-inflammatories (NSAID)
CPT/HCPCS: 36415; 80053; 81003; 81025; 83690; 83735; 84484; 85025; 93005; 96374; 99284